=== PATIENT | male | born 1995 | race American Indian/Alaskan Native ===

== ENCOUNTER 2017-11-09 10:49 | Emergency (ER) | payer OTHER ==
[~2017-11-09] VITALS: Ht 188 cm; Wt 81.7 kg
[~2017-11-09 10:49] MED LIST: NO CURRENT MEDS; Pepcid40 MG PO; Zofran8 MG PO
[2017-11-09] MEDS ORDERED: Norco 5-325 Ta1 EACH PO (12:07)
== END 2017-11-09 12:30 | disposition home or self-care (01) ==
LOC: ER 10:49
DX: S62.324A Displaced fracture of shaft of fourth metacarpal bone, right hand, initial encounter for closed fracture (principal); F17.200 Nicotine dependence, unspecified, uncomplicated; J45.909 Unspecified asthma, uncomplicated; W22.8XXA Striking against or struck by other objects, initial encounter
CPT/HCPCS: 29125; 73130; 90471; 90714; 99283

== ENCOUNTER 2017-11-25 11:04 | Day surgery (SDC) | payer OTHER ==
[~2017-11-25] VITALS: Ht 185.4 cm; Wt 77.1 kg
[~2017-11-25 11:04] MED LIST changes: +Norco 5-325 Ta1 EACH PO
== END 2017-11-25 15:52 | disposition home or self-care (01) ==
LOC: ORSCMMR 11:04 → ORD 12:30 → ORSCMMR 15:52
PROVIDERS: Orthopaedic Surgery
PROC: 0PSP04Z Reposition Right Metacarpal with Internal Fixation Device, Open Approach (ICD-10-PCS; principal; 2017-11-25 12:30)
DX: S62.324A Displaced fracture of shaft of fourth metacarpal bone, right hand, initial encounter for closed fracture (principal); K21.9 Gastro-esophageal reflux disease without esophagitis; F17.210 Nicotine dependence, cigarettes, uncomplicated
CPT/HCPCS: C1713; J0330; J0690; J1100; J2250; J2405; J3010; J7120

== ENCOUNTER → 2018-03-19 | Outpatient (CLI) | payer OTHER ==
[2018-03-20 07:07] LABS: HBSAG SCREEN Negative (Negative); HEP A AB, IGM Negative (Negative); HEP B CORE AB, IGM Negative (Negative); HEP C VIRUS AB <0.1 (0.0-0.9)
[2018-03-22 13:10] LABS: HIV SCREEN 4TH GENERATION WRFX Non Reactive (Non Reactive)
== END ==
LOC: LAB 10:30 → LAB SHORT 10:30
PROVIDERS: Physician Assistant
DX: N34.1 Nonspecific urethritis (principal)
CPT/HCPCS: 80074; 86592; 87389; 87491

== ENCOUNTER → 2019-01-11 | Outpatient (CLI) | payer OTHER | END | disposition home or self-care (01) | LOC: LAB 20:15 → LAB SHORT 20:15 | DX: N48.5 Ulcer of penis (principal) | CPT/HCPCS: 87529 ==

== ENCOUNTER 2021-01-09 15:22 | Emergency (ER) | payer OTHER ==
[~2021-01-09] VITALS: Ht 185.4 cm; Wt 95.2 kg
[2021-01-09 17:25] LABS: BASOPHILS ABSOLUTE AUTO 0.06 K/mm3 (0.00-0.23); BASOPHILS PERCENT AUTO 1 % (0-2); EOSINOPHILS ABSOLUTE AUTO 0.01 K/mm3 (0.00-0.68); EOSINOPHILS PERCENT AUTO 0 % (0-6); Hematocrit 45.5 % (37.0-53.0); IMMATURE GRAN ABSOLUTE AUTO 0.03 K/mm3 (0.00-0.10); IMMATURE GRAN PERCENT AUTO 0 % (0-1); LYMPHOCYTES ABSOLUTE AUTO 1.18 K/mm3 (0.84-5.20); LYMPHOCYTES PERCENT AUTO 15 % (21-46); MONOCYTES ABSOLUTE AUTO 0.84 K/mm3 (0.16-1.47); MONOCYTES PERCENT AUTO 11 % (4-13); Mean Corpuscular HGB 31.3 pg (26.0-34.0); Mean Corpuscular HGB Conc 35.2 g/dL (31.5-36.5); Mean Corpuscular Volume 89 fL (80-100); Mean Platelet Volume 9.2 fL (9.1-12.4); NEUTROPHILS ABSOLUTE AUTO 5.91 K/mm3 (1.96-9.15); NEUTROPHILS PERCENT AUTO 74 % (41-73); Platelet Count 262 K/mm3 (150-400); RDW Coefficient Variation 12.6 % (11.7-14.2); RDW Standard Deviation 41.3 fL (35.1-46.3); Red Blood Cell Count 5.11 M/mm3 (4.30-5.90); White Blood Cell Count 8.03 K/mm3 (4.00-11.30)
[2021-01-09 17:26] LABS: Source, Urine Clean Catch
[2021-01-09 17:33] LABS: Appearance, Urine Clear (Clear); Bilirubin, Urine Neg (Neg); Blood, Urine Neg (Neg); Color, Urine Yellow (P-Yellow); Glucose Qualitative, Urine Neg (Neg); Ketones, Urine 4+ (Neg); Leukocyte Esterase, Urine 1+ (Neg); Nitrite, Urine Neg (Neg); Protein, Urine 1+ (Neg); Urobilinogen, Urine NORM (Normal)
[2021-01-09 17:41] LABS: Bacteria Rare /hpf; Red Blood Cells, Urine Not Seen /hpf (0-2); Squamous Epithelial Cells Rare /hpf (Few); White Blood Cells, Urine 0-2 /hpf (0-5)
[2021-01-09 17:44] LABS: Alanine Aminotransfer (ALT/SGP 50 U/L (12-78); Albumin, Blood 4.5 g/dL (3.4-5.0); Albumin/Globulin Ratio 1.2 (0.8-1.8); Alk Phos 88 U/L (50-136); Anion Gap 12 mmol/L (6-16); Aspartate Aminotrans (AST/SGOT 54 U/L (12-37); Bilirubin, Total 1.1 mg/dL (0.1-1.0); Blood Urea Nitrogen 13 mg/dL (8-24); Bun/Creatinine Ratio 16.5 (12.0-20.0); CO2, Blood 23 mmol/L (21-32); Calcium, Blood 9.4 mg/dL (8.5-10.1); Chloride, Blood 102 mmol/L (98-108); Creatinine, Blood 0.79 mg/dL (0.60-1.20); Free Thyroxine 1.17 ng/dL (0.70-1.60); Globulin, Blood 3.9 g/dL (2.2-4.0); Glomerular Filtration Rate >60 (60-); Glucose, Blood 92 mg/dL (70-99); Potassium, Blood 3.1 mmol/L (3.5-5.5); Sodium, Blood 137 mmol/L (136-145); Total Protein, Blood 8.4 g/dL (6.4-8.2)
[2021-01-09 17:47] LABS: U Amphetamine Screen DETECTED; U Barbituate Screen Not Detected; U Benzodiazapine Screen Not Detected; U Buprenorphine Screen Not Detected; U Cannabinoids Screen DETECTED; U Cocaine Screen DETECTED; U Methadone Screen Not Detected; U Methamphetamine Screen DETECTED; U Opiates Screen Not Detected; U Oxycodone Screen Not Detected; U Phencyclidine Screen Not Detected; U Propoxyphene Screen Not Detected
== END 2021-01-09 19:05 | disposition home or self-care (01) ==
LOC: ER 15:22
PROVIDERS: Emergency Medicine
DX: F15.10 Other stimulant abuse, uncomplicated (principal); R00.0 Tachycardia, unspecified; F17.200 Nicotine dependence, unspecified, uncomplicated
CPT/HCPCS: 80053; 81001; 83735; 84439; 84443; 85025; 87086; 93005; 93010; 96361; 96374; 96376; 99285-25; A9270; J2060; J7030

== ENCOUNTER 2021-09-19 20:45 | Emergency (ER) | payer OTHER ==
[~2021-09-19] VITALS: Ht 185.4 cm; Wt 95.2 kg
[2021-09-19] MEDS ORDERED: Norco 5-325 Ta1 EACH PO (22:31)
== END 2021-09-19 23:15 | disposition home or self-care (01) ==
LOC: ER 20:45
DX: S82.62XA Displaced fracture of lateral malleolus of left fibula, initial encounter for closed fracture (principal); S82.55XA Nondisplaced fracture of medial malleolus of left tibia, initial encounter for closed fracture; J45.909 Unspecified asthma, uncomplicated; F17.200 Nicotine dependence, unspecified, uncomplicated; Z79.899 Other long term (current) drug therapy; Y04.2XXA Assault by strike against or bumped into by another person, initial encounter
CPT/HCPCS: 29515; 73590; 73610; 99283-25; A9270

== ENCOUNTER 2021-09-24 12:34 | Day surgery (SDC) | payer OTHER ==
[~2021-09-24] VITALS: Ht 185.4 cm; Wt 90.2 kg
[2021-09-24] MEDS ORDERED: IBUP200 (12:57)
--- NOTE | 2021-09-24 14:17 | NUR ---
09/24/21 1417 Fabricio Denis BUPIVACAINE 0.5% 50 MLS MIXED WITH EPI 0.25 ML PER ORDER TO CONSTITUTE BUPIVACAINE 0.5% 1:200,000 FOR INJECTION AT OPSITE BY DR MCLEAN. MULTI DOSE VIAL, DIVIDED IN OR BY RN.
--- NOTE | 2021-09-24 16:07 | NUR ---
09/24/21 1607 Brooke Lucero LATE ENTRY PRIOR TO DISCHARGE PAIN WAS TOLERABLE 03/27. PT DESIRES TO GO HOME.
== END 2021-09-24 15:59 | disposition home or self-care (01) ==
LOC: ORSCSDS 12:34
PROVIDERS: Podiatrist Foot & Ankle Surgery
PROC: 0QSK04Z Reposition Left Fibula with Internal Fixation Device, Open Approach (ICD-10-PCS; principal; 2021-09-24 14:15)
DX: S82.62XA Displaced fracture of lateral malleolus of left fibula, initial encounter for closed fracture (principal); J45.909 Unspecified asthma, uncomplicated
CPT/HCPCS: A9270; C1713; J0171; J0690; J1100; J1885; J2250; J2405; J2704; J3010; J7120